=== PATIENT | female | born 1995 | race Caucasian/White ===

== ENCOUNTER 2019-01-24 16:08 | Inpatient (IN) | payer MEDICAID ==
[~2019-01-24] VITALS: Ht 162.6 cm; Wt 69.1 kg
[~2019-01-24 16:08] MED LIST: ACET325T33 PO; LANO28CR TOP; PRENAT PO; SENN-117 PO; TUCKS PR
[2019-01-24 17:30] VITALS: BP 96/61; PULSE 96; RESP 18; Ht 162.6 cm; Wt 69.1 kg
[2019-01-24] MEDS ORDERED: MISOPROSTOL 200 MCG TAB PR PRN (19:00)
[2019-01-24] MEDS ORDERED: LIDOCAINE 1% (MPF) 30 ML INJ INJ PRN (19:00)
[2019-01-24] MEDS ORDERED: BUTORPHANOL 2 MG INJ IV PRN ×2 (19:00)
[2019-01-24] MEDS ORDERED: CARBOPROST 250 MCG INJ IM PRN (19:00)
[2019-01-24] MEDS ORDERED: METHYLERGONOVINE 0.2 MG INJ IM PRN (19:00)
[2019-01-24] MEDS ORDERED: OXYTOCIN 30 UNITS/LR 500 ML IV SCH ×3 (19:00→22:00)
[2019-01-24] MEDS ORDERED: OXYTOCIN 30 UNITS/LR 500 ML IV PRN (19:00)
[2019-01-24] MEDS: LACTATED RINGER'S 1,000 ML IV SCH (20:19)
[2019-01-24] MEDS ORDERED: MISOPROSTOL 50 MCG CAPSULE PO ONE (22:00)
[2019-01-25] MEDS: LACTATED RINGER'S 1,000 ML IV SCH ×2 (03:06→11:16)
[2019-01-25] MEDS ORDERED: MINERAL OIL LIGHT 10 ML VIAL TOP ONE (15:30)
[2019-01-25] MEDS ORDERED: IBUPROFEN 600 MG TAB PO ONE (17:00)
[2019-01-25] MEDS ORDERED: IBUPROFEN 600 MG TAB ONE (17:11)
[2019-01-25] MEDS ORDERED: OXYTOCIN 30 UNITS/LR 500 ML IV SCH (18:45)
[2019-01-25] MEDS: IBUPROFEN 600 MG TAB PO SCH (19:00)
[2019-01-25] MEDS ORDERED: ZOLPIDEM 5 MG TAB PO PRN (19:00)
[2019-01-25] MEDS ORDERED: CARBOPROST 250 MCG INJ IM PRN (19:00)
[2019-01-25] MEDS ORDERED: OXYTOCIN 30 UNITS/LR 500 ML IV PRN (19:00)
[2019-01-25] MEDS ORDERED: NACL 0.9% 3 ML SYG IV SCH (19:00)
[2019-01-25] MEDS ORDERED: SENNA/DOCUSATE NA (8.6MG/50MG) TAB PO PRN (19:00)
[2019-01-25] MEDS ORDERED: ACETAMINOPHEN 325 MG TAB PO PRN ×2 (19:00)
[2019-01-25] MEDS ORDERED: LANOLIN 7 GM TUBE TOP PRN (19:00)
[2019-01-25] MEDS: PRENATAL VITAMIN PO SCH (19:00)
[2019-01-25] MEDS ORDERED: ONDANSETRON 4 MG INJ IV PRN (19:00)
[2019-01-25] MEDS ORDERED: WITCH HAZEL/GLYCERIN PAD PR PRN (19:00)
[2019-01-25] MEDS ORDERED: DIPHENHYDRAMINE 25 MG CAP PO PRN (19:00)
[2019-01-25] MEDS ORDERED: LANOLIN HPA 1 PKT TOP PRN (19:00)
[2019-01-25] MEDS ORDERED: MISOPROSTOL 200 MCG TAB PR PRN (19:00)
[2019-01-25 19:45] VITALS: BP 100/52; PULSE 74; RESP 18
[2019-01-25] MEDS: SENNA/DOCUSATE NA (8.6MG/50MG) TAB PO SCH (21:30)
[2019-01-25] MEDS: WITCH HAZEL/GLYCERIN PAD PR PRN (21:30)
[2019-01-26] VITALS: BP 100/68; PULSE 79; RESP 19
[2019-01-26] MEDS: IBUPROFEN 600 MG TAB PO SCH ×4 (00:25→17:48)
[2019-01-26 04:17] VITALS: BP 91/54; PULSE 83; RESP 18
[2019-01-26 08:00] VITALS: BP 98/65; PULSE 81; RESP 18
[2019-01-26] MEDS: PRENATAL VITAMIN PO SCH (09:12)
[2019-01-26] MEDS: SENNA/DOCUSATE NA (8.6MG/50MG) TAB PO SCH ×2 (09:12→22:14)
[2019-01-26 12:00] VITALS: BP 110/67; PULSE 91; RESP 18
[2019-01-26 16:45] VITALS: BP 99/61; PULSE 73; RESP 16
[2019-01-26 20:20] VITALS: BP 97/60; PULSE 79; RESP 18
[2019-01-27] MEDS: IBUPROFEN 600 MG TAB PO SCH ×3 (00:21→12:09)
[2019-01-27 04:05] VITALS: BP 104/62; PULSE 79; RESP 18
[2019-01-27 08:00] VITALS: BP 95/62; PULSE 81; RESP 16
[2019-01-27] MEDS: PRENATAL VITAMIN PO SCH (08:07)
[2019-01-27] MEDS: SENNA/DOCUSATE NA (8.6MG/50MG) TAB PO SCH ×2 (08:07→08:12)
[2019-01-27] MEDS ORDERED: DIPHTH/TET/ACEL PERTUSS (ADULT) 0.5 ML VIAL IM* ONE (09:00)
[2019-01-27] MEDS ORDERED: MEASLES,MUMPS,RUBELLA VACCINE INJ SC* ONE (09:00)
[2019-01-27] MEDS ORDERED: VARICELLA VACCINE LIVE/PF 1,350 UNIT/0.5 ML ML SC* ONE (09:00)
[2019-01-27] MEDS: WITCH HAZEL/GLYCERIN PAD PR PRN (14:26)
== END 2019-01-27 14:39 | disposition home or self-care (01) | DRG 807 ==
LOC: OBT 16:08 → L-D 16:11 → OBT 18:50 → L-D 22:51 → PP1 01-25 19:33
PROVIDERS: ADMIT Obstetrics & Gynecology; ATTEND Obstetrics & Gynecology
PROC: 10E0XZZ Delivery of Products of Conception, External Approach (ICD-10-PCS; principal; 2019-01-25)
DX: O48.0 Post-term pregnancy (principal); Z37.0 Single live birth; Z3A.40 40 weeks gestation of pregnancy; Z23 Encounter for immunization
CPT/HCPCS: 76815; 76818; 85025; 85610; 85730; 86592; 86850; 86900; 86901; 90716; G0463; J0595; J2590; J7120